=== PATIENT | female | born 2005 | race Two or more races ===

== ENCOUNTER 2023-05-12 20:46 | Emergency (ER) | payer MEDICAID, OTHER ==
[~2023-05-12] VITALS: Ht 154.9 cm; Wt 63.0 kg
[2023-05-12 21:12] LABS: Basophils # (auto) 0 10 ^3/uL (0-0.2); Basophils % (auto) 0.1 % (0.0-2.0); Eosinophils # (auto) 0 10 ^3/uL (0-0.8); Hematocrit 40.6 % (36.0-46.0); Hemoglobin 13.6 g/dL (12.2-16.2); Lymphocytes # (auto) 1.3 10 ^3/uL (0.4-5.4); Lymphocytes % (auto) 15.8 % (10.0-50.0); Mean Corpuscular Hemoglobin 29.2 pg (28.0-32.0); Mean Corpuscular Hgb Conc. 33.5 g/dL (32.0-36.0); Mean Corpuscular Volume 87.3 fL (80.0-100.0); Monocytes # (auto) 0.8 10 ^3/uL (0-1.3); Monocytes % (auto) 10.1 % (0.0-12.0); Neutrophils # (auto) 6.2 10 ^3/uL (1.6-8.6); Nucleated Red Blood Cells % 0.1 %; Red Blood Cells 4.65 10^6/uL (4.0-5.20); Red Cell Distribution Width 13.5 % (11.8-14.3); White Blood Cell 8.4 10^3/uL (4.4-10.8)
[2023-05-12 21:20] LABS: Urine Bacteria FEW /hpf (None Seen); Urine Blood Negative /uL (Negative); Urine Specific Gravity 1.013 (1.001-1.035); Urine WBC 2 /hpf (0 - 5)
[2023-05-12 21:30] LABS: INR 1.18 (0.9-1.15); Partial Thromboplastin Time 32.5 SEC (24.5-34.5)
[2023-05-12 21:34] LABS: Albumin 3.9 g/dL (3.4-5.0); Calcium 8.6 mg/dL (8.5-10.1); Magnesium 2.2 mg/dL (1.6-2.6); Potassium 3.2 mmol/L (3.5-5.1)
[2023-05-12 21:37] LABS: BUN/Creatinine Ratio 14.1 (10.0-20.0); Bilirubin, Total 0.6 mg/dL (0.2-1.0); Total Protein 7.9 g/dL (6.4-8.2)
[2023-05-12] MEDS ORDERED: MAALOX PLUS or MAALOX 30 ML PO ONE (23:30)
[2023-05-12] MEDS ORDERED: LIDOCAINE VISCOUS 2% 15ML UD PO ONE (23:30)
[2023-05-12 23:48] VITALS: BP 121/85; PULSE 88; RESP 15; O2SAT 88
[2023-05-13] MEDS ORDERED: ZOFR4T PO (00:04)
== END 2023-05-13 01:28 | disposition home or self-care (01) ==
LOC: ER 20:46
DX: R07.89 Other chest pain (principal); K52.9 Noninfective gastroenteritis and colitis, unspecified
CPT/HCPCS: 36415; 71045; 80053; 81001; 81025; 83735; 83880; 84484; 85025; 85610; 85730; 93005

== ENCOUNTER 2024-11-27 14:39 | Emergency (ER) | payer MEDICAID ==
[~2024-11-27] VITALS: Ht 157.5 cm; Wt 67.6 kg
[~2024-11-27 14:39] MED LIST: ZOFR4T PO
[2024-11-27 15:47] VITALS: BP 126/83; PULSE 97; RESP 17; TEMP 98; O2SAT 98
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
[2024-11-27] MEDS ORDERED: IBUP-1456 PO (17:15)
[2024-11-27] MEDS: ACETAMINOPHEN 325 MG TAB PO ONE (17:23)
== END 2024-11-27 17:45 | disposition home or self-care (01) ==
LOC: ER 14:39
DX: S93.602A Unspecified sprain of left foot, initial encounter (principal); S66.912A Strain of unspecified muscle, fascia and tendon at wrist and hand level, left hand, initial encounter; S66.911A Strain of unspecified muscle, fascia and tendon at wrist and hand level, right hand, initial encounter; S70.01XA Contusion of right hip, initial encounter; V89.2XXA Person injured in unspecified motor-vehicle accident, traffic, initial encounter; Y93.89 Activity, other specified; Y92.410 Unspecified street and highway as the place of occurrence of the external cause; Y99.8 Other external cause status
CPT/HCPCS: 73100; 73630